=== PATIENT | female | born 1965 | race American Indian/Alaskan Native ===

== ENCOUNTER 2017-01-20 12:24 | Emergency (ER) | payer MEDICARE ==
--- NOTE | 2017-01-20 15:51 | Emergency Department Report ---
ED Back Pain/Injury HPI - General Chief Complaint: Back Pain/Injury Stated Complaint: LT HIP/ LOWER BACK PAIN Time Seen by Provider: 01/20/17 15:50 Source: patient Limitations: No Limitations - History of Present Illness MD Complaint: back pain -: Gradual Similar Symptoms Previously: Yes (patient has history of chronic recurrent low back pain) Radiation: left leg, right leg Severity: moderate Severity scale (0 -10): 5 Quality: burning, aching Consistency: constant Context: other (current) Associated Symptoms: difficulty walking. denies: difficulty urinating, diaphoresis, incontinence, fever/chills, constipation, headaches, abdominal pain , loss of appetite, malaise, nausea/vomiting, rash, syncope - Related Data Previous Rx's Medication Instructions Recorded Last Taken Type HYDROcodone/ACETAMINOPHEN 1 each PO BID PRN #20 tablet 10/01/13 Unknown Rx [Hydrocodone Acetaminophen(Nf) 7.5/500 mg Tab] Propranolol [Inderal] 40 mg PO BID #60 tablet 10/01/13 Unknown Rx traMADol [Ultram 50 MG tab] 50 mg PO Q4HR PRN #20 tablet 10/01/13 Unknown Rx HYDROcodone/APAP 5-325 [[place] 1 each PO Q6HR PRN #20 tablet 10/08/13 Unknown Rx 5/325 mg] Nitrofurantoin [place]/M-Cryst 100 mg PO Q12HR #20 capsule 01/20/17 Unknown Rx [Macrobid CAP] traMADol [Ultram 50 MG tab] 50 mg PO Q4HR PRN #15 tablet 01/20/17 Unknown Rx Allergies Allergy/AdvReac Type Severity Reaction Status Date / Time levofloxacin [From Levaquin] Allergy Hives Verified 09/23/13 20:41 morphine Allergy Hives Verified 09/23/13 20:41 Penicillins Allergy Hives Verified 09/23/13 20:41 steroids Allergy Hives Uncoded 09/23/13 20:41 ED Review of Systems ROS: Stated complaint: LT HIP/ LOWER BACK PAIN Other details as noted in HPI Constitutional: denies: chills, fever, malaise Respiratory: denies: cough, orthopnea, shortness of breath, SOB with exertion, SOB at rest Cardiovascular: denies: chest pain, palpitations, syncope Gastrointestinal: denies: abdominal pain, nausea, vomiting, diarrhea, constipation Genitourinary: denies: urgency, dysuria, frequency, hematuria, discharge Musculoskeletal: back pain. denies: joint swelling, arthralgia, myalgia Skin: denies: rash, lesions Neurological: denies: paresthesias, abnormal gait ED Past Medical Hx - Past Medical History Hx Hypertension: Yes Additional medical history: chronic pancreatitisi icc ddd, endometriosis anemic - Surgical History Hx Cholecystectomy: Yes Hx Appendectomy: Yes Additional Surgical History: gastric bypass, bladder surgery partial hysterectom colectomy - Social History Smoking Status: Never Smoker Substance Use Type: None - Medications Home Medications: Home Medications Medication Instructions Recorded Confirmed Last Taken Type HYDROcodone/ACETAMINOPHEN 1 each PO BID PRN #20 tablet 10/01/13 Unknown Rx [Hydrocodone Acetaminophen(Nf) 7.5/500 mg Tab] Propranolol [Inderal] 40 mg PO BID #60 tablet 10/01/13 Unknown Rx traMADol [Ultram 50 MG tab] 50 mg PO Q4HR PRN #20 tablet 10/01/13 Unknown Rx HYDROcodone/APAP 5-325 [[place] 1 each PO Q6HR PRN #20 tablet 10/08/13 Unknown Rx 5/325 mg] Nitrofurantoin [place]/M-Cryst 100 mg PO Q12HR #20 capsule 01/20/17 Unknown Rx [Macrobid CAP] traMADol [Ultram 50 MG tab] 50 mg PO Q4HR PRN #15 tablet 01/20/17 Unknown Rx ED Physical Exam - General Limitations: No Limitations General appearance: alert, in no apparent distress - Head Head exam: Present: atraumatic - Eye Eye exam: Present: normal appearance, PERRL, EOMI - ENT ENT exam: Present: mucous membranes moist - Neck Neck exam: Present: normal inspection, full ROM. Absent: tenderness, meningismus - Respiratory Respiratory exam: Present: normal lung sounds bilaterally. Absent: respiratory distress, wheezes, rales, rhonchi, stridor - Cardiovascular Cardiovascular Exam: Present: regular rate - GI/Abdominal GI/Abdominal exam: Present: soft. Absent: distended, tenderness, guarding, rebound, rigid - Extremities Exam Extremities exam: Present: normal inspection, normal capillary refill. Absent: pedal edema, joint swelling, calf tenderness - Back Exam Back exam: Present: paraspinal tenderness. Absent: CVA tenderness (R), CVA tenderness (L), vertebral tenderness - Neurological Exam Neurological exam: Present: alert, oriented X3. Absent: abnormal gait, motor sensory deficit ED Course Vital Signs 01/20/17 01/20/17 13:32 17:38 Temperature 98.5 F 97.8 F Pulse Rate 75 100 H Respiratory 20 18 Rate Blood Pressure 150/89 Blood Pressure 133/75 [Left] O2 Sat by Pulse 100 97 Oximetry Critical care attestation.: If time is entered above; I have spent that time in minutes in the direct care of this critically ill patient, excluding procedure time. ED Disposition Clinical Impression: UTI (urinary tract infection), Low back pain Disposition: DISCHARGED TO HOME OR SELFCARE Is pt being admited?: No Condition: Stable Instructions: Urinary Tract Infection in Women (ED), Low Back Strain (ED) Prescriptions: Nitrofurantoin [place]/M-Cryst [Macrobid CAP] 100 mg PO Q12HR #20 capsule traMADol [Ultram 50 MG tab] 50 mg PO Q4HR PRN #15 tablet PRN Reason: Pain Referrals: PRIMARY CARE, [Primary Care Provider] - 3-5 Days
--- NOTE | 2017-01-20 16:53 | Cat Scan Report ---
CT ABDOMEN AND PELVIS WITHOUT CONTRAST INDICATION: Right flank pain. COMPARISON: 10/08/2013 FINDINGS: Noncontrast abdomen and pelvis CT performed. LUNG BASES: Nonspecific distal esophageal wall thickening, not excluded for gastroesophageal reflux and/or hiatal hernia, amongst others. ABDOMEN: Please note that sensitivity to detect small visceral lesions is limited due to the absence of intravenous or oral contrast. Gastric bypass changes and multiple other upper abdominal surgical clips, including cholecystectomy clips and ascending colon anastomosis again noted. Right hepatic lobe approximately 19 cm in midclavicular length. Otherwise grossly unremarkable unenhanced liver, spleen, pancreas, adrenals, nonaneurysmal abdominal aorta, IVC and kidneys. Nonopacified GI tract evaluation limited, though grossly nonobstructive. Mild to moderate colonic stool. No ascites. Few small sub-centimeter mesenteric and retroperitoneal lymph nodes again noted. PELVIS: Stable hysterectomy, few pelvic phleboliths, urinary bladder and rectosigmoid. No free fluid or significant adenopathy. Healed infraumbilical midline incision. Approximately 1 mm anterolisthesis of L4 over L5. Moderate L3-L4 disc narrowing. Mild facet arthropathy at above levels. Slight degenerative spurring at few other spinal levels. CONCLUSION: No acute CT abnormality on this limited exam with stable post surgical changes and few other findings, as described. Please correlate. Thank you for the opportunity to participate in this patient's care.
[2017-01-20 17:12] LABS: Bacteria,Urine 4+ /HPF (Negative); Bilirubin,Urine NEG (Negative); Blood,Urine NEG (Negative); Ketones,Urine TR mg/dL (Negative); Leukocyte Esterase,Urine TR (Negative); Mucus,Urine 2+ /HPF; Nitrite,Urine NEG (Negative); Protein,Urine <15 mg/dL mg/dL (Negative); Urobilinogen,Urine < 2.0 mg/dL (<2.0)
[2017-01-20 17:39] VITALS: BP 133/75
== END 2017-01-20 17:38 | disposition home or self-care (01) ==
LOC: ED 12:24
DX: N39.0 Urinary tract infection, site not specified (principal); M54.5 Low back pain; Z88.0 Allergy status to penicillin; Z88.8 Allergy status to other drugs, medicaments and biological substances; Z88.1 Allergy status to other antibiotic agents; I10 Essential (primary) hypertension; K86.1 Other chronic pancreatitis; Z90.49 Acquired absence of other specified parts of digestive tract; Z90.89 Acquired absence of other organs
CPT/HCPCS: 74176; 81001